=== PATIENT | male | born 1995 | race Caucasian/White ===

== ENCOUNTER 2018-05-31 19:55 | Emergency (ER) | payer MEDICAID ==
[~2018-05-31] VITALS: Ht 182.9 cm; Wt 53.3 kg
[2018-05-31 21:17] VITALS: BP 136/85
== END 2018-05-31 21:19 | disposition home or self-care (01) ==
LOC: ER 19:56
DX: S60.211A Contusion of right wrist, initial encounter (principal); X58.XXXA Exposure to other specified factors, initial encounter; Y93.89 Activity, other specified; Y92.89 Other specified places as the place of occurrence of the external cause; Y99.8 Other external cause status
CPT/HCPCS: 29125; 73110; 99283

== ENCOUNTER 2019-12-09 22:01 | Emergency (ER) | payer MEDICAID ==
[~2019-12-09] VITALS: Ht 180.3 cm; Wt 65.1 kg
[2019-12-09 22:02] VITALS: BP 141/81
[2019-12-09] MEDS ORDERED: CIPR10DR RIGHT EAR (22:35)
[2019-12-09] MEDS ORDERED: AMOX-422 PO (22:35)
== END 2019-12-09 22:43 | disposition home or self-care (01) ==
LOC: ER 22:01
DX: H72.91 Unspecified perforation of tympanic membrane, right ear (principal); H92.01 Otalgia, right ear; Z79.2 Long term (current) use of antibiotics
CPT/HCPCS: 99283

== ENCOUNTER 2020-02-18 10:25 | Emergency (ER) | payer MEDICAID ==
[~2020-02-18] VITALS: Ht 167.6 cm; Wt 65.9 kg
[2020-02-18 10:26] VITALS: BP 140/93
[2020-02-18] MEDS ORDERED: TETanus/Pertussis (Acell)/Diphther VAC/PF (Tdap-Adult) 0.5ml syringe IMVAC ONE (10:40)
[2020-02-18] MEDS ORDERED: ciprofloxacin 250mg tablet PO ONE (10:55)
[2020-02-18] MEDS ORDERED: IBUP-1985 PO (10:57)
[2020-02-18] MEDS ORDERED: CIPR-230 PO (10:57)
== END 2020-02-18 11:18 | disposition home or self-care (01) ==
LOC: ER 10:26
DX: S91.331A Puncture wound without foreign body, right foot, initial encounter (principal); F17.200 Nicotine dependence, unspecified, uncomplicated; W45.0XXA Nail entering through skin, initial encounter; Y93.89 Activity, other specified; Y92.89 Other specified places as the place of occurrence of the external cause; Y99.8 Other external cause status
CPT/HCPCS: 73630; 90471; 90715; 99283